=== PATIENT | male | born 1990 | race African-American/Black ===

== ENCOUNTER 2020-12-20 15:19 | Emergency (ER) | payer SELFPAY ==
--- OUTSIDE RECORDS SUMMARY | 2020-12-20 15:22 | XMS REPORT | Continuity of Care Document ---
:1990 Author Organization [facility] t Address [address] [place] [address] Care Team Providers Name Role Phone Pcp, Does Not Have Primary Care Physician Unavailable JAY Attending Clinician Unavailable Celeste Byrd R Attending Clinician Elif Pappas MD Attending Clinician Elif PAPPAS Attending Clinician Unavailable Payers Payer Name Policy Type Policy Effective Date Expiration Date Sour ce Number [facility] [id number] 2014 [place] [id number] 00:00:00 Health [id number] [place] [address] [facility] [id number] 2014 [place] PRISONERHARRIS 00:00:00 [facility] [id number] [phone] [place] [address] Problems Condition Condition Condition Status Onset Resolution Last Treating Co mments Source Name Details Category Date Date Treatment Clinician Date 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 [place] 2 Priority 1 Acute Acute Disease Active Overview: Barrera stress stress 09-17 [facility] reaction reaction 00:00: g of this 00 note might be different from the original. [place] 1 Priority 1 [place] V [place] V Disease Active Overview: Barrera diagnosis diagnosis 09-17 [facility] 00:00: g of this 00 note might be different from the original. GAF Score:41 Problem Problem Disease Active Overview: Malcolm is related to related to 09-10 [facility] social social 00:00: g of this environmen environmen 00 note t t might be different from the original. [place] 4 Priority 3 Legal Legal Disease Active Overview: [facility]rera problem problem - [facility] 00:00: g of this note might be different from the original. [place] 4 Priority 1 Problem Problem Disease Active Overview: Malcolm is related to related to 09-26 [facility] primary primary 00:00: g of this support support 00 note group group might be different from the original. [place] 4 Priority 2 Educationa Educationa Disease Active Overview : Barrera l problem l problem - [facility] 00:00: g of this 00 note might be different from the original. [place] 4 Priority 4 Left hand Left hand Disease Active Robbie ris pain pain Health Allergies, Adverse Reactions, Alerts Allergy Allergy Status Severity Reaction(s) Onset Inactive Treating Comm ents Source Name Type Date Date Clinician No Known DA Active [facility] 4 [facility] s 00:00: [address] No Known DA Active U [facility] 8 [place] s 00:00: [address] Family History Family Member Diagnosis Comments Start Date Stop Date Source Natural father Diabetes [facility] Natural father Heart [facility] Social History Social Habit Start Date Stop Date Quantity Comments Source [facility] Comment History of tobacco Cigarette Smoker [facility] use Alcohol intake 2020-11-19 2020-11-19 Current Barrera [facility] 00:00:00 00:00:00 non-drinker of alcohol (finding) History SDOH 2020-11-01 2020-11-01 1 [facility] Alcohol Frequency 00:00:00 00:00:00 History SDOH 2020-11-01 2020-11-01 1 [facility] Alcohol Std Drinks 00:00:00 00:00:00 History SDOH 2020-11-01 2020-11-01 1 [facility] Alcohol Binge 00:00:00 00:00:00 Cigarettes smoked 2020-10-30 2020-10-30 [facility] current (pack per 00:00:00 00:00:00 day) - Reported Cigarette 2020-10-30 2020-10-30 [facility] pack-years 00:00:00 00:00:00 Tobacco use and 2020-10-30 2020-10-30 Never used [facility] alth exposure 00:00:00 00:00:00 Sex [birth year] [facility] Unit alth 00:00:00 00:00:00 Smoking Status Start Date Stop Date Source Current every day smoker 2020-10-30 00:00:00 [facility] [employer] Medications Ordered Filled Start Stop Current Ordering Indication Dosage Frequency Signature Comments Components Source Medication Medication Date Date Medication? Clinician (SIG) Name Name Misc. Yes 800mg QD 800 mg [facility] 7-23 daily. Health (IBUPROFEN 18:24: 400MG TAB) 15 mirtazapine Yes Major 30mg Take 1 Orbbie ris (REMERON) 7-15 depressive tablet by [facility] 30 mg 00:00: disorder, mouth at tablet 00 recurrent bedtime severe nightly. without psychotic features prazosin Yes Post 2mg Take 1 [facility] (MINIPRESS) 7-15 traumatic capsule by [facility] 2 mg 00:00: stress mouth capsule 00 disorder every (PTSD) evening. tamsulosin 2020- No .4mg QD Take 0.4 Coffey rris (FLOMAX) 7-14 07-14 mg by [facility] 0.4 mg 12:34: 00:00 mouth extended 28 :00 daily. release capsule sertraline 2020- No Take by [facility] ris HCl (ZOLOFT 7-14 07-14 mouth. Healt h OR) 12:34: 00:00 28 :00 prazosin 2020- No Post 2mg Take 1 Barrera (MINIPRESS) 11-03 traumatic capsule by Health 2 mg 00:00: 00:00 stress mouth capsule 00 :00 disorder every (PTSD) evening. mirtazapine 2020- No Major 30mg Take 1 Coffey rris (REMERON) 11-03 depressive tablet by Health 30 mg 00:00: 00:00 disorder, mouth at tablet 00 :00 recurrent bedtime severe nightly. without psychotic features divalproex 2020- No Take 1 Malcolm is (DEPAKOTE) 09-17 tablet(s) Hea lth 500 mg 00:00: 00:00 by mouth delayed 00 :00 Every day release at bedtime tablet citalopram 2020- No Take 1 Malcolm is (CELEXA) 10 09-17 tablet(s) He alth mg tablet 00:00: 00:00 by mouth 00 :00 Every morning prazosin 2020- No Take Barrera (MINIPRESS) 09-17 capsule(s) H ealth 1 mg 00:00: 00:00 by mouth 1 capsule 00 :00 PO qHS x 5 days then 2 PO qHS Vital Signs Vital Name Observation Time Observation Value Comments Source Systolic blood pressure 2020-11-10 19:00:00 99 mm[Hg] [facility] Diastolic blood pressure 2020-11-10 19:00:00 70 mm[Hg] [facility] Heart rate 2020-11-10 19:00:00 95 /min [facility] Body temperature 2020-11-10 19:00:00 36.5 Deirdre [facility] Oxygen saturation in 2020-11-10 19:00:00 98 /min [facility] Arterial blood by Pulse oximetry Respiratory rate 2020-11-04 09:06:00 16 /min [facility] Body height 2020-10-31 10:41:00 182.9 cm [facility] Body weight 2020-10-31 10:41:00 74.844 kg [facility] BMI 2020-10-31 10:41:00 22.38 kg/m2 [facility] Procedures Procedure Date / Time Performed Performing Clinician [facility] 2020-10-31 11:30:00 [facility] SCREEN XRAY HAND 3 VIEWS MIN 2020-10-08 14:37:59 Rand Pappas [facility] XRAY WRIST 3 VIEWS MIN 2020-10-08 14:37:59 Rand Pappas [facility] XRAY FOREARM 2 VIEWS MIN 2020-10-08 14:37:59 Rand Pappas [facility] Plan of Care Planned Activity Planned Date Details Comments Source Future Scheduled Test 2021-01-21 IMM Influenza Seasonal [facility] 00:00:00 Jan to June (>/= 19 yrs) [code = IMM Influenza Seasonal Jan to June (>/= 19 yrs)] Future Scheduled Test 2002 COVID-19 Vaccine (1) [facility] 00:00:00 [code = COVID-19 Vaccine (1)] Future Scheduled Test 1996-01-25 Imm Pneumococcal 0-64 [facility] 00:00:00 (1 of 2 - PPSV23) [code = Imm Pneumococcal 0-64 (1 of 2 - PPSV23)] Encounters Start End Encounter Admission Attending Care Care Encounter Source Date/Time Date/Time Type Type Clinicians Facility Department ID 2019-08-13 Inpatient E [facility] [address] [facility] 19:56:00 2020-11-04 2020-11-12 Inpatient [facility] [id number] [place] 12:09:00 18:22:00 [facility] 2020-10-30 2020-11-04 Inpatient THOMPSON, [facility] [id number] [place] 18:46:39 10:15:00 [facility] 2020-11-02 2020-11-02 Outpatient [facility] [id number] [place] 00:00:00 00:00:00 Health 2020-10-18 2020-10-18 Outpatient [facility] [id number] [place] 00:00:00 00:00:00 Health 2020-10-18 2020-10-18 Outpatient [facility] [id number] [place] 00:00:00 00:00:00 Health 2020-10-08 2020-10-08 Emergency [facility] [id number] [place] 13:18:00 16:26:00 [facility] 2019-08-22 2019-08-22 Emergency [facility] [address] [facility] 18:07:00 18:07:00 Results Test Description Test Time Test Comments Results Result [facility] e Comments - XR FOREARM 2 2019-08-24 Patient Name: VIEWS LT 13:28:00 COURTNEY KINCAID Unit No: [id number] EXAMS: CPT CODE: [id number] XR [place] 2 [place] [id number] EXAM: - XR FOREARM 2 VIEWS LT INDICATION: injury LOCATION CODE: B2 COMPARISON: None available. TECHNIQUE: 2 views of the left forearm were obtained. FINDINGS: A DVR plate is present at the distal radius with multiple screws. There is no evidence of hardware failure. No acute fracture or malalignment is seen. There is soft tissue swelling at the volar aspect of the wrist with small faint radiopaque foreign bodies identified. IMPRESSION: Soft tissue swelling at the volar aspect of the wrist with small faint radiopaque foreign bodies identified. It is possible these radiopaque foreign bodies may represent postsurgical changes from the prior distal radius internal fixation. No acute fracture or malalignment. at 1328 Reported and signed by: Kennedi Bragg MD CC: Adelfo Casper; MARIEL KAMARA DO Technologist: Aftab Sandhu, (RT) (R) Transcrpt Date/Tm/Trnsp: 08/24/2019 (1328) [email or web address] Orig Print D/T: S: 08/24/2019 (7521) [facility] NAME: COURTNEY KINCAID [id number] PHYS: [place] [address] : 1990 AGE: 29 SEX: M LOC: [place] PHONE #: [phone] EXAM DATE: 08/24/2019 STATUS: REG ER FAX #: [phone] RADIOLOGY NO: PAGE 1 Signed Report URINALYSIS COMPLETE 2019-08-23 23:09:00 Test Item Value Reference Range Interpretation Comme nts UA COLOR (test code = COLU) YELLOW YELLOW UA APPEARANCE (test code = APPU) CLEAR CLEAR UA GLUCOSE DIPSTICK (test code = DGLUU) NORMAL MG/DL NORMAL UA BILIRUBIN DIPSTICK (test code = BILU) NEGATIVE MG/DL NEGATIVE UA KETONE DIPSTICK (test code = KETU) 5 MG/DL NEGATIVE UA SPECIFIC GRAVITY (test code = SGU) 1.030 1.003-1.030 N UA BLOOD DIPSTICK (test code = JOSE) 25 Jung/mm3 NEGATIVE A UA PH DIPSTICK (test code = JODEE) 5.0 5.0-9.0 N UA PROTEIN DIPSTICK (test code = PROU) NEGATIVE MG/DL NEGATIVE UA UROBILINIOGEN DIPSTICK (test code = URO) 1 MG/DL NORMAL A UA NITRITE DIPSTICK (test code = CIERRA) NEGATIVE NEGATIVE UA LEUKOCYTE ESTERASE DIPSTICK (test code = LEUU) TRACE /mm3 NEGA TIVE A UA CULTURE NEEDED? (test code = UACULT) NO, WBC<10 Criteria Culture Chk SOURCE OF URINE: CLEAN CATCHUA [id number] 23:09:00 Test Item Value Reference Range Interpretation Comments UA RBC (test code = RBCU) 0-3 RBC/HPF 0-3 UA WBC (test code = XWBCU) 0-3 WBC/HPF 0-5 UA EPITHELIAL CELLS (test code RARE EPI/HPF FEW = EPIU) UA BACTERIA (test code = FEW NONE XBACU) UA MUCUS (test code = MUCU) MODERATE #/LPF NONE A SOURCE OF URINE: CLEAN CATCHDRUGS OF ABUSE SCREEN [id number] 23:09:00 Test Item Value Reference Range Interpretation Comments UR COCAINE (test code = NEGATIVE NEGATIVE Cut off Value: 300 COCAU) ng/mL UR CANNABINOIDS (THC) POSITIVE NEGATIVE A This i s a Screening (test code = CANU) test and the Results are to be used for medical purpose s only.Cut off Va lue: 50 ng/mL UR AMPHETAMINE (test code NEGATIVE NEGATIVE Cu t off Value: 1000 = AMPHU) ng/mL UR BARBITURATE QUAL (test NEGATIVE NEGATIVE Cu t off Value: 200 code = BARBQLU) ng/mL UR BENZODIAZEPINE (test NEGATIVE NEGATIVE Cut off Value: 200 code = BENZU) ng/mL UR OPIATES QUAL (test NEGATIVE NEGATIVE Cut of f Value: 300 code = OPIAQLU) ng/mL UR PHENCYCLIDINE (PCP) NEGATIVE NEGATIVE Cut o ff Value: 25 (test code = PHENCU) ng/mL SOURCE OF URINE: CLEAN CATCHURINALYSIS [id number] 22:57:00 Test Item Value Reference Range Interpretation Comments UA COLOR (test code = YELLOW YELLOW COLU) UA APPEARANCE (test code CLEAR CLEAR = APPU) UA GLUCOSE DIPSTICK (test NORMAL MG/DL NORMAL code = DGLUU) UA BILIRUBIN DIPSTICK NEGATIVE MG/DL NEGATIVE (test code = BILU) UA KETONE DIPSTICK (test 5 MG/DL NEGATIVE code = KETU) UA SPECIFIC GRAVITY (test 1.030 1.003-1.030 N code = SGU) UA BLOOD DIPSTICK (test 25 Jung/mm3 NEGATIVE A code = JOSE) UA PH DIPSTICK (test code 5.0 5.0-9.0 N = JODEE) UA PROTEIN DIPSTICK (test NEGATIVE MG/DL NEGATIVE code = PROU) UA UROBILINIOGEN DIPSTICK 1 MG/DL NORMAL A (test code = URO) UA NITRITE DIPSTICK (test NEGATIVE NEGATIVE code = CIERRA) UA LEUKOCYTE ESTERASE TRACE /mm3 NEGATIVE A DIPSTICK (test code = LEUU) UA CULTURE NEEDED? (test NO, WBC<10 Criteria Culture Chk code = UACULT) SOURCE OF URINE: CLEAN CATCHUA [id number] 22:57:00 Test Item Value Reference Range Interpretation Comments UA RBC (test code = RBCU) 0-3 RBC/HPF 0-3 UA WBC (test code = XWBCU) 0-3 WBC/HPF 0-5 UA EPITHELIAL CELLS (test code RARE EPI/HPF FEW = EPIU) UA BACTERIA (test code = FEW NONE XBACU) UA MUCUS (test code = MUCU) MODERATE #/LPF NONE A SOURCE OF URINE: CLEAN CATCHDRUGS OF ABUSE SCREEN [id number] 22:57:00 Test Item Value Reference Range Interpretation Comments UR COCAINE (test code = NEGATIVE NEGATIVE Cut off Value: 300 COCAU) ng/mL UR CANNABINOIDS (THC) NEGATIVE (test code = CANU) UR AMPHETAMINE (test code NEGATIVE NEGATIVE Cu t off Value: 1000 = AMPHU) ng/mL UR BARBITURATE QUAL (test NEGATIVE code = BARBQLU) UR BENZODIAZEPINE (test NEGATIVE NEGATIVE Cut off Value: 200 code = BENZU) ng/mL UR OPIATES QUAL (test code NEGATIVE NEGATIVE C ut off Value: 300 = OPIAQLU) ng/mL UR PHENCYCLIDINE (PCP) NEGATIVE NEGATIVE Cut o ff Value: 25 (test code = PHENCU) ng/mL SOURCE OF URINE: CLEAN CATCHURINALYSIS [id number] 22:55:00 Test Item Value Reference Range Interpretation Comments UA COLOR (test code = COLU) YELLOW YELLOW UA APPEARANCE (test code = CLEAR CLEAR APPU) UA GLUCOSE DIPSTICK (test code NORMAL MG/DL NORMAL = DGLUU) UA BILIRUBIN DIPSTICK (test NEGATIVE MG/DL NEGATIVE code = BILU) UA KETONE DIPSTICK (test code 5 MG/DL NEGATIVE = KETU) UA SPECIFIC GRAVITY (test code 1.030 1.003-1.030 N = SGU) UA BLOOD DIPSTICK (test code = 25 Jung/mm3 NEGATIVE A JOSE) UA PH DIPSTICK (test code = 5.0 5.0-9.0 N JODEE) UA PROTEIN DIPSTICK (test code NEGATIVE MG/DL NEGATIVE = PROU) UA UROBILINIOGEN DIPSTICK 1 MG/DL NORMAL A (test code = URO) UA NITRITE DIPSTICK (test code NEGATIVE NEGATIVE = CIERRA) UA LEUKOCYTE ESTERASE DIPSTICK TRACE /mm3 NEGATIVE A (test code = LEUU) UA CULTURE NEEDED? (test code Criteria Culture Chk = UACULT) SOURCE OF URINE: CLEAN CATCHUA [id number] 22:55:00 Test Item Value Reference Range Interpretation Comments UA RBC (test code = RBCU) RBC/HPF 0-3 UA WBC (test code = XWBCU) WBC/HPF 0-5 UA EPITHELIAL CELLS (test code = EPI/HPF FEW EPIU) UA BACTERIA (test code = XBACU) NONE SOURCE OF URINE: CLEAN CATCHDRUGS OF ABUSE SCREEN [id number] 22:55:00 Test Item Value Reference Range Interpretation Comments UR COCAINE (test code = NEGATIVE NEGATIVE Cut off Value: 300 COCAU) ng/mL UR CANNABINOIDS (THC) NEGATIVE (test code = CANU) UR AMPHETAMINE (test code NEGATIVE NEGATIVE Cu t off Value: 1000 = AMPHU) ng/mL UR BARBITURATE QUAL (test NEGATIVE code = BARBQLU) UR BENZODIAZEPINE (test NEGATIVE NEGATIVE Cut off Value: 200 code = BENZU) ng/mL UR OPIATES QUAL (test code NEGATIVE NEGATIVE C ut off Value: 300 = OPIAQLU) ng/mL UR PHENCYCLIDINE (PCP) NEGATIVE NEGATIVE Cut o ff Value: 25 (test code = PHENCU) ng/mL SOURCE OF URINE: CLEAN CATCHURINALYSIS [id number] 22:54:00 Test Item Value Reference Range Interpretation Comments UA COLOR (test code = COLU) YELLOW YELLOW UA APPEARANCE (test code = CLEAR CLEAR APPU) UA GLUCOSE DIPSTICK (test code NORMAL MG/DL NORMAL = DGLUU) UA BILIRUBIN DIPSTICK (test NEGATIVE MG/DL NEGATIVE code = BILU) UA KETONE DIPSTICK (test code 5 MG/DL NEGATIVE = KETU) UA SPECIFIC GRAVITY (test code 1.030 1.003-1.030 N = SGU) UA BLOOD DIPSTICK (test code = 25 Jung/mm3 NEGATIVE A JOSE) UA PH DIPSTICK (test code = 5.0 5.0-9.0 N JODEE) UA PROTEIN DIPSTICK (test code NEGATIVE MG/DL NEGATIVE = PROU) UA UROBILINIOGEN DIPSTICK 1 MG/DL NORMAL A (test code = URO) UA NITRITE DIPSTICK (test code NEGATIVE NEGATIVE = CIERRA) UA LEUKOCYTE ESTERASE DIPSTICK TRACE /mm3 NEGATIVE A (test code = LEUU) UA CULTURE NEEDED? (test code Criteria Culture Chk = UACULT) SOURCE OF URINE: CLEAN CATCHUA [id number] 22:54:00 Test Item Value Reference Range Interpretation Comments UA RBC (test code = RBCU) RBC/HPF 0-3 UA WBC (test code = XWBCU) WBC/HPF 0-5 UA EPITHELIAL CELLS (test code = EPI/HPF FEW EPIU) UA BACTERIA (test code = XBACU) NONE SOURCE OF URINE: CLEAN CATCHDRUGS OF ABUSE SCREEN [id number] 22:54:00 Test Item Value Reference Range Interpretation Comments UR COCAINE (test code = NEGATIVE NEGATIVE Cut off Value: 300 COCAU) ng/mL UR CANNABINOIDS (THC) NEGATIVE (test code = CANU) UR AMPHETAMINE (test code NEGATIVE NEGATIVE Cu t off Value: 1000 = AMPHU) ng/mL UR BARBITURATE QUAL (test NEGATIVE code = BARBQLU) UR BENZODIAZEPINE (test NEGATIVE NEGATIVE Cut off Value: 200 code = BENZU) ng/mL UR OPIATES QUAL (test code NEGATIVE NEGATIVE C ut off Value: 300 = OPIAQLU) ng/mL UR PHENCYCLIDINE (PCP) NEGATIVE (test code = PHENCU) SOURCE OF URINE: CLEAN CATCHURINALYSIS [id number] 22:53:00 Test Item Value Reference Range Interpretation Comments UA COLOR (test code = COLU) YELLOW YELLOW UA APPEARANCE (test code = CLEAR CLEAR APPU) UA GLUCOSE DIPSTICK (test code NORMAL MG/DL NORMAL = DGLUU) UA BILIRUBIN DIPSTICK (test NEGATIVE MG/DL NEGATIVE code = BILU) UA KETONE DIPSTICK (test code 5 MG/DL NEGATIVE = KETU) UA SPECIFIC GRAVITY (test code 1.030 1.003-1.030 N = SGU) UA BLOOD DIPSTICK (test code = 25 Jung/mm3 NEGATIVE A JOSE) UA PH DIPSTICK (test code = 5.0 5.0-9.0 N JODEE) UA PROTEIN DIPSTICK (test code NEGATIVE MG/DL NEGATIVE = PROU) UA UROBILINIOGEN DIPSTICK 1 MG/DL NORMAL A (test code = URO) UA NITRITE DIPSTICK (test code NEGATIVE NEGATIVE = CIERRA) UA LEUKOCYTE ESTERASE DIPSTICK TRACE /mm3 NEGATIVE A (test code = LEUU) UA CULTURE NEEDED? (test code Criteria Culture Chk = UACULT) SOURCE OF URINE: CLEAN CATCHUA [id number] 22:53:00 Test Item Value Reference Range Interpretation Comments UA RBC (test code = RBCU) RBC/HPF 0-3 UA WBC (test code = XWBCU) WBC/HPF 0-5 UA EPITHELIAL CELLS (test code = EPI/HPF FEW EPIU) UA BACTERIA (test code = XBACU) NONE SOURCE OF URINE: CLEAN CATCHDRUGS OF ABUSE SCREEN [id number] 22:53:00 Test Item Value Reference Range Interpretation Comments UR COCAINE (test code = NEGATIVE NEGATIVE Cut off Value: 300 COCAU) ng/mL UR CANNABINOIDS (THC) NEGATIVE (test code = CANU) UR AMPHETAMINE (test code NEGATIVE NEGATIVE Cu t off Value: 1000 = AMPHU) ng/mL UR BARBITURATE QUAL (test NEGATIVE code = BARBQLU) UR BENZODIAZEPINE (test NEGATIVE NEGATIVE Cut off Value: 200 code = BENZU) ng/mL UR OPIATES QUAL (test code NEGATIVE = OPIAQLU) UR PHENCYCLIDINE (PCP) NEGATIVE (test code = PHENCU) SOURCE OF URINE: CLEAN CATCHURINALYSIS [id number] 22:52:00 Test Item Value Reference Range Interpretation Comments UA COLOR (test code = COLU) YELLOW YELLOW UA APPEARANCE (test code = CLEAR CLEAR APPU) UA GLUCOSE DIPSTICK (test code NORMAL MG/DL NORMAL = DGLUU) UA BILIRUBIN DIPSTICK (test NEGATIVE MG/DL NEGATIVE code = BILU) UA KETONE DIPSTICK (test code 5 MG/DL NEGATIVE = KETU) UA SPECIFIC GRAVITY (test code 1.030 1.003-1.030 N = SGU) UA BLOOD DIPSTICK (test code = 25 Jung/mm3 NEGATIVE A JOSE) UA PH DIPSTICK (test code = 5.0 5.0-9.0 N JODEE) UA PROTEIN DIPSTICK (test code NEGATIVE MG/DL NEGATIVE = PROU) UA UROBILINIOGEN DIPSTICK 1 MG/DL NORMAL A (test code = URO) UA NITRITE DIPSTICK (test code NEGATIVE NEGATIVE = CIERRA) UA LEUKOCYTE ESTERASE DIPSTICK TRACE /mm3 NEGATIVE A (test code = LEUU) UA CULTURE NEEDED? (test code Criteria Culture Chk = UACULT) SOURCE OF URINE: CLEAN CATCHUA [id number] 22:52:00 Test Item Value Reference Range Interpretation Comments UA RBC (test code = RBCU) RBC/HPF 0-3 UA WBC (test code = XWBCU) WBC/HPF 0-5 UA EPITHELIAL CELLS (test code = EPI/HPF FEW EPIU) UA BACTERIA (test code = XBACU) NONE SOURCE OF URINE: CLEAN CATCHDRUGS OF ABUSE SCREEN [id number] 22:52:00 Test Item Value Reference Range Interpretation Comments UR COCAINE (test code = NEGATIVE COCAU) UR CANNABINOIDS (THC) NEGATIVE (test code = CANU) UR AMPHETAMINE (test code NEGATIVE NEGATIVE Cu t off Value: 1000 = AMPHU) ng/mL UR BARBITURATE QUAL (test NEGATIVE code = BARBQLU) UR BENZODIAZEPINE (test NEGATIVE NEGATIVE Cut off Value: 200 code = BENZU) ng/mL UR OPIATES QUAL (test code NEGATIVE = OPIAQLU) UR PHENCYCLIDINE (PCP) NEGATIVE (test code = PHENCU) SOURCE OF URINE: CLEAN CATCHBASIC METABOLIC [id number] 22:52:00 Test Item Value Reference Range Interpretation Comments SODIUM (test code = 136 MMOL/L 137-145 L NA) POTASSIUM (test code = 3.8 MMOL/L 3.5-5.1 N K) CHLORIDE (test code = 101 MMOL/L 98-107 N CL) CARBON DIOXIDE (test 27 MMOL/L 22-30 N code = CO2) GLUCOSE (test code = 120 MG/DL 74-106 H GLU) BLOOD UREA NITROGEN 18 MG/DL 9-20 N (test code = BUN) GLOMERULAR FILTRATION > 60 Report ing units: RATE (test code = GFR) ml/mi n/1.73 m2 (Modified MDRD Formula)Referen ce Range: > or = 6 0 ml/min/1.73 m2 CREATININE (test code 1.00 MG/DL 0.66-1.25 N = CREAT) CALCIUM (test code = 9.3 MG/DL 8.4-10.2 N CA) HEPATIC FUNCTION [id number] 22:52:00 Test Item Value Reference Range Interpretation Comments TOTAL PROTEIN (test code = PROT) 7.2 G/DL 6.2-7.6 N ALBUMIN (test code = ALB) 4.3 G/DL 3.5-5.0 N BILIRUBIN TOTAL (test code = BILT) 0.8 MG/DL 0.2-1.3 N BILIRUBIN DIRECT (test code = 0.0 MG/DL 0.0-0.3 N BILD) SGOT/AST (test code = AST) 33 UNITS/L 17-59 N SGPT/ALT (test code = ALT) 22 UNITS/L <50 ALKALINE PHOSPHATASE (test code = 49 UNITS/L 38-126 N ALKP) [id number] 22:52:00 Test Item Value Reference Range Interpretation Comments ALCOHOL (test code = ALC) < 10.0 MG/DL <10 BASIC METABOLIC [id number] 22:51:00 Test Item Value Reference Range Interpretation Comments SODIUM (test code = 136 MMOL/L 137-145 L NA) POTASSIUM (test code = 3.8 MMOL/L 3.5-5.1 N K) CHLORIDE (test code = 101 MMOL/L 98-107 N CL) CARBON DIOXIDE (test MMOL/L 22-30 code = CO2) GLUCOSE (test code = MG/DL 74-106 GLU) BLOOD UREA NITROGEN MG/DL 9-20 (test code = BUN) GLOMERULAR FILTRATION > 60 Report ing units: RATE (test code = GFR) ml/mi n/1.73 m2 (Modified MDRD Formula)Referen ce Range: > or = 6 0 ml/min/1.73 m2 CREATININE (test code 1.00 MG/DL 0.66-1.25 N = CREAT) CALCIUM (test code = MG/DL 8.7-9.7 CA) HEPATIC FUNCTION [id number] 22:51:00 Test Item Value Reference Range Interpretation Comments TOTAL PROTEIN (test code = PROT) G/DL 6.2-7.6 ALBUMIN (test code = ALB) 4.3 G/DL 3.5-5.0 N BILIRUBIN TOTAL (test code = BILT) MG/DL 0.2-1.3 BILIRUBIN DIRECT (test code = BILD) 0.0 MG/DL 0.0-0.3 N SGOT/AST (test code = AST) UNITS/L 15-37 SGPT/ALT (test code = ALT) UNITS/L <50 ALKALINE PHOSPHATASE (test code = UNITS/L 38-126 ALKP) [id number] 22:51:00 Test Item Value Reference Range Interpretation Comments ALCOHOL (test code = ALC) MG/DL <10 BASIC METABOLIC [id number] 22:51:00 Test Item Value Reference Range Interpretation Comments SODIUM (test code = 136 MMOL/L 137-145 L NA) POTASSIUM (test code = 3.8 MMOL/L 3.5-5.1 N K) CHLORIDE (test code = 101 MMOL/L 98-107 N CL) CARBON DIOXIDE (test 27 MMOL/L 22-30 N code = CO2) GLUCOSE (test code = MG/DL 74-106 GLU) BLOOD UREA NITROGEN MG/DL 9-20 (test code = BUN) GLOMERULAR FILTRATION > 60 Report ing units: RATE (test code = GFR) ml/mi n/1.73 m2 (Modified MDRD Formula)Referen ce Range: > or = 6 0 ml/min/1.73 m2 CREATININE (test code 1.00 MG/DL 0.66-1.25 N = CREAT) CALCIUM (test code = MG/DL 8.7-9.7 CA) HEPATIC FUNCTION [id number] 22:51:00 Test Item Value Reference Range Interpretation Comments TOTAL PROTEIN (test code = PROT) 7.2 G/DL 6.2-7.6 N ALBUMIN (test code = ALB) 4.3 G/DL 3.5-5.0 N BILIRUBIN TOTAL (test code = BILT) 0.8 MG/DL 0.2-1.3 N BILIRUBIN DIRECT (test code = 0.0 MG/DL 0.0-0.3 N BILD) SGOT/AST (test code = AST) 33 UNITS/L 17-59 N SGPT/ALT (test code = ALT) UNITS/L <50 ALKALINE PHOSPHATASE (test code = UNITS/L 38-126 ALKP) [id number] 22:51:00 Test Item Value Reference Range Interpretation Comments ALCOHOL (test code = ALC) MG/DL <10 BASIC METABOLIC [id number] 22:50:00 Test Item Value Reference Range Interpretation Comments SODIUM (test code = 136 MMOL/L 137-145 L NA) POTASSIUM (test code = 3.8 MMOL/L 3.5-5.1 N K) CHLORIDE (test code = 101 MMOL/L 98-107 N CL) CARBON DIOXIDE (test MMOL/L 22-30 code = CO2) GLUCOSE (test code = MG/DL 74-106 GLU) BLOOD UREA NITROGEN MG/DL 9-20 (test code = BUN) GLOMERULAR FILTRATION > 60 Report ing units: RATE (test code = GFR) ml/mi n/1.73 m2 (Modified MDRD Formula)Referen ce Range: > or = 6 0 ml/min/1.73 m2 CREATININE (test code 1.00 MG/DL 0.66-1.25 N = CREAT) CALCIUM (test code = MG/DL 8.7-9.7 CA) HEPATIC FUNCTION [id number] 22:50:00 Test Item Value Reference Range Interpretation Comments TOTAL PROTEIN (test code = PROT) G/DL 6.2-7.6 ALBUMIN (test code = ALB) 4.3 G/DL 3.5-5.0 N BILIRUBIN TOTAL (test code = BILT) MG/DL 0.2-1.3 BILIRUBIN DIRECT (test code = BILD) MG/DL 0.0-0.3 SGOT/AST (test code = AST) UNITS/L 15-37 SGPT/ALT (test code = ALT) UNITS/L <50 ALKALINE PHOSPHATASE (test code = UNITS/L 38-126 ALKP) [id number] 22:50:00 Test Item Value Reference Range Interpretation Comments ALCOHOL (test code = ALC) MG/DL <10 URINALYSIS [id number] 22:50:00 Test Item Value Reference Range Interpretation Comments UA COLOR (test code = COLU) YELLOW YELLOW UA APPEARANCE (test code = CLEAR CLEAR APPU) UA GLUCOSE DIPSTICK (test code NORMAL MG/DL NORMAL = DGLUU) UA BILIRUBIN DIPSTICK (test NEGATIVE MG/DL NEGATIVE code = BILU) UA KETONE DIPSTICK (test code 5 MG/DL NEGATIVE = KETU) UA SPECIFIC GRAVITY (test code 1.030 1.003-1.030 N = SGU) UA BLOOD DIPSTICK (test code = 25 Jung/mm3 NEGATIVE A JOSE) UA PH DIPSTICK (test code = 5.0 5.0-9.0 N JODEE) UA PROTEIN DIPSTICK (test code NEGATIVE MG/DL NEGATIVE = PROU) UA UROBILINIOGEN DIPSTICK 1 MG/DL NORMAL A (test code = URO) UA NITRITE DIPSTICK (test code NEGATIVE NEGATIVE = CIERRA) UA LEUKOCYTE ESTERASE DIPSTICK TRACE /mm3 NEGATIVE A (test code = LEUU) UA CULTURE NEEDED? (test code Criteria Culture Chk = UACULT) SOURCE OF URINE: CLEAN CATCHUA [id number] 22:50:00 Test Item Value Reference Range Interpretation Comments UA RBC (test code = RBCU) RBC/HPF 0-3 UA WBC (test code = XWBCU) WBC/HPF 0-5 UA EPITHELIAL CELLS (test code = EPI/HPF FEW EPIU) UA BACTERIA (test code = XBACU) NONE SOURCE OF URINE: CLEAN CATCHDRUGS OF ABUSE SCREEN [id number] 22:50:00 Test Item Value Reference Range Interpretation Comments UR COCAINE (test code = NEGATIVE COCAU) UR CANNABINOIDS (THC) NEGATIVE (test code = CANU) UR AMPHETAMINE (test code NEGATIVE = AMPHU) UR BARBITURATE QUAL (test NEGATIVE code = BARBQLU) UR BENZODIAZEPINE (test NEGATIVE NEGATIVE Cut off Value: 200 code = BENZU) ng/mL UR OPIATES QUAL (test code NEGATIVE = OPIAQLU) UR PHENCYCLIDINE (PCP) NEGATIVE (test code = PHENCU) SOURCE OF URINE: CLEAN CATCHBASIC METABOLIC [id number] 22:49:00 Test Item Value Reference Range Interpretation Comments SODIUM (test code = NA) 136 MMOL/L 137-145 L POTASSIUM (test code = K) 3.8 MMOL/L 3.5-5.1 N CHLORIDE (test code = CL) 101 MMOL/L 98-107 N CARBON DIOXIDE (test code = CO2) MMOL/L 22-30 GLUCOSE (test code = GLU) MG/DL 74-106 BLOOD UREA NITROGEN (test code = MG/DL 9-20 BUN) GLOMERULAR FILTRATION RATE (test code = GFR) CREATININE (test code = CREAT) MG/DL 0.66-1.25 CALCIUM (test code = CA) MG/DL 8.7-9.7 HEPATIC FUNCTION [id number] 22:49:00 Test Item Value Reference Range Interpretation Comments TOTAL PROTEIN (test code = PROT) G/DL 6.2-7.6 ALBUMIN (test code = ALB) 4.3 G/DL 3.5-5.0 N BILIRUBIN TOTAL (test code = BILT) MG/DL 0.2-1.3 BILIRUBIN DIRECT (test code = BILD) MG/DL 0.0-0.3 SGOT/AST (test code = AST) UNITS/L 15-37 SGPT/ALT (test code = ALT) UNITS/L <50 ALKALINE PHOSPHATASE (test code = UNITS/L 38-126 ALKP) [id number] 22:49:00 Test Item Value Reference Range Interpretation Comments ALCOHOL (test code = ALC) MG/DL <10 BASIC METABOLIC [id number] 22:48:00 Test Item Value Reference Range Interpretation Comments SODIUM (test code = NA) MMOL/L 137-145 POTASSIUM (test code = K) MMOL/L 3.5-5.1 CHLORIDE (test code = CL) MMOL/L 98-107 CARBON DIOXIDE (test code = CO2) MMOL/L 22-30 GLUCOSE (test code = GLU) MG/DL 74-106 BLOOD UREA NITROGEN (test code = BUN) MG/DL 9-20 GLOMERULAR FILTRATION RATE (test code = GFR) CREATININE (test code = CREAT) MG/DL 0.66-1.25 CALCIUM (test code = CA) MG/DL 8.7-9.7 HEPATIC FUNCTION [id number] 22:48:00 Test Item Value Reference Range Interpretation Comments TOTAL PROTEIN (test code = PROT) G/DL 6.2-7.6 ALBUMIN (test code = ALB) 4.3 G/DL 3.5-5.0 N BILIRUBIN TOTAL (test code = BILT) MG/DL 0.2-1.3 BILIRUBIN DIRECT (test code = BILD) MG/DL 0.0-0.3 SGOT/AST (test code = AST) UNITS/L 15-37 SGPT/ALT (test code = ALT) UNITS/L <50 ALKALINE PHOSPHATASE (test code = UNITS/L 38-126 ALKP) [id number] 22:48:00 Test Item Value Reference Range Interpretation Comments ALCOHOL (test code = ALC) MG/DL <10 CBC W/AUTO [id number] 22:39:00 Test Item Value Reference Range Interpretation Comments WHITE BLOOD CELL (test code = 10.6 K/MM3 3.8-9.8 H WBC) RED BLOOD CELL (test code = 3.36 M/MM3 3.95-5.67 L RBC) HEMOGLOBIN (test code = HGB) 11.3 G/DL 12.4-16.7 L HEMATOCRIT (test code = HCT) 33.9 % 35.9-49.5 L MEAN CELL VOLUME (test code = 101 fL 81.7-96.1 H MCV) MEAN CELL HGB (test code = MCH) 33.6 pg 27.6-33.2 H MEAN CELL HGB CONCETRATION 33.3 % 32.9-35.5 N (test code = MCHC) RED CELL DISTRIBUTION WIDTH 12.0 % 12.1-15.2 L (test code = RDW) PLATELET COUNT (test code = 359 K/MM3 129-368 N PLT) MEAN PLATELET VOLUME (test code 9.0 fl 7.4-10.4 N = MPV) NEUTROPHIL % (test code = NT%) 67.0 % 43-75 N IMMATURE GRANULOCYTE % (test 0.3 % 0.0-2.0 N code = IG%) LYMPHOCYTE % (test code = LY%) 22.4 % 14-44 N MONOCYTE % (test code = MO%) 9.1 % 4-13 N EOSINOPHIL % (test code = EO%) 0.7 % 0-6 N BASOPHIL % (test code = BA%) 0.5 % 0-2 N NUCLEATED RBC % (test code = 0.0 % 0-1.0 N NRBC%) NEUTROPHIL # (test code = NT#) 7.11 K/mm3 2.0-7.6 N IMMATURE GRANULOCYTE # (test 0.03 x10 3/uL 0-0.03 N code = IG#) LYMPHOCYTE # (test code = LY#) 2.37 K/mm3 1.0-3.8 N MONOCYTE # (test code = MO#) 0.96 K/mm3 0.1-0.8 H EOSINOPHIL # (test code = EO#) 0.07 K/mm3 0.0-0.2 N BASOPHIL # (test code = BA#) 0.05 K/mm3 0.0-0.2 N NUCLEATED RBC # (test code = 0.00 K/mm3 0.0-0.1 N NRBC#) URINALYSIS [id number] 22:38:00 Test Item Value Reference Range Interpretation Comments UA COLOR (test code = COLU) YELLOW YELLOW UA APPEARANCE (test code = CLEAR CLEAR APPU) UA GLUCOSE DIPSTICK (test code NORMAL MG/DL NORMAL = DGLUU) UA BILIRUBIN DIPSTICK (test NEGATIVE MG/DL NEGATIVE code = BILU) UA KETONE DIPSTICK (test code 5 MG/DL NEGATIVE = KETU) UA SPECIFIC GRAVITY (test code 1.030 1.003-1.030 N = SGU) UA BLOOD DIPSTICK (test code = 25 Jung/mm3 NEGATIVE A JOSE) UA PH DIPSTICK (test code = 5.0 5.0-9.0 N JODEE) UA PROTEIN DIPSTICK (test code NEGATIVE MG/DL NEGATIVE = PROU) UA UROBILINIOGEN DIPSTICK 1 MG/DL NORMAL A (test code = URO) UA NITRITE DIPSTICK (test code NEGATIVE NEGATIVE = CIERRA) UA LEUKOCYTE ESTERASE DIPSTICK TRACE /mm3 NEGATIVE A (test code = LEUU) UA CULTURE NEEDED? (test code Criteria Culture Chk = UACULT) SOURCE OF URINE: CLEAN CATCHUA [id number] 22:38:00 Test Item Value Reference Range Interpretation Comments UA RBC (test code = RBCU) RBC/HPF 0-3 UA WBC (test code = XWBCU) WBC/HPF 0-5 UA EPITHELIAL CELLS (test code = EPI/HPF FEW EPIU) UA BACTERIA (test code = XBACU) NONE SOURCE OF URINE: CLEAN CATCHDRUGS OF ABUSE SCREEN [id number] 22:38:00 Test Item Value Reference Range Interpretation Comments UR COCAINE (test code = COCAU) NEGATIVE UR CANNABINOIDS (THC) (test code = NEGATIVE CANU) UR AMPHETAMINE (test code = AMPHU) NEGATIVE UR BARBITURATE QUAL (test code = NEGATIVE BARBQLU) UR BENZODIAZEPINE (test code = BENZU) NEGATIVE UR OPIATES QUAL (test code = OPIAQLU) NEGATIVE UR PHENCYCLIDINE (PCP) (test code = NEGATIVE PHENCU) SOURCE OF URINE: CLEAN CATCHURINALYSIS [id number] 22:38:00 Test Item Value Reference Range Interpretation Comments UA COLOR (test code = COLU) YELLOW YELLOW UA APPEARANCE (test code = CLEAR CLEAR APPU) UA GLUCOSE DIPSTICK (test code NORMAL MG/DL NORMAL = DGLUU) UA BILIRUBIN DIPSTICK (test NEGATIVE MG/DL NEGATIVE code = BILU) UA KETONE DIPSTICK (test code 5 MG/DL NEGATIVE = KETU) UA SPECIFIC GRAVITY (test code 1.030 1.003-1.030 N = SGU) UA BLOOD DIPSTICK (test code = 25 Jung/mm3 NEGATIVE A JOSE) UA PH DIPSTICK (test code = 5.0 5.0-9.0 N JODEE) UA PROTEIN DIPSTICK (test code NEGATIVE MG/DL NEGATIVE = PROU) UA UROBILINIOGEN DIPSTICK 1 MG/DL NORMAL A (test code = URO) UA NITRITE DIPSTICK (test code NEGATIVE NEGATIVE = CIERRA) UA LEUKOCYTE ESTERASE DIPSTICK TRACE /mm3 NEGATIVE A (test code = LEUU) UA CULTURE NEEDED? (test code Criteria Culture Chk = UACULT) SOURCE OF URINE: CLEAN CATCHUA [id number] 22:38:00 Test Item Value Reference Range Interpretation Comments UA RBC (test code = RBCU) RBC/HPF 0-3 UA WBC (test code = XWBCU) WBC/HPF 0-5 UA EPITHELIAL CELLS (test code = EPI/HPF FEW EPIU) UA BACTERIA (test code = XBACU) NONE SOURCE OF URINE: CLEAN CATCHDRUGS OF ABUSE SCREEN [id number] 22:38:00 Test Item Value Reference Range Interpretation Comments UR COCAINE (test code = COCAU) NEGATIVE UR CANNABINOIDS (THC) (test code = NEGATIVE CANU) UR AMPHETAMINE (test code = AMPHU) NEGATIVE UR BARBITURATE QUAL (test code = NEGATIVE BARBQLU) UR BENZODIAZEPINE (test code = BENZU) NEGATIVE UR OPIATES QUAL (test code = OPIAQLU) NEGATIVE UR PHENCYCLIDINE (PCP) (test code = NEGATIVE PHENCU) SOURCE OF URINE: CLEAN CATCHUA RFLX MICR CULT IF [id number] 19:20:00 Test Item Value Reference Range Interpretation Comments UA COLOR (test code = COLU) YELLOW discript YEL/STRAW UA APPEARANCE (test code = CLEAR discript CLEAR APPU) UA GLUCOSE DIPSTICK (test NEGATIVE mg/dL NEG code = DGLUU) UA BILIRUBIN DIPSTICK (test NEGATIVE mg/dL NEG code = BILU) UA KETONE DIPSTICK (test NEGATIVE mg/dL NEG code = KETU) UA SPECIFIC GRAVITY (test 1.025 SG 1.005-1.030 code = SGU) UA BLOOD DIPSTICK (test NEGATIVE mg/DL NEG code = JOSE) UA PH DIPSTICK (test code = 6.0 pH UNITS 5.0-7.0 JODEE) UA PROTEIN DIPSTICK (test NEGATIVE mg/dL NEG code = PROU) UA UROBILINIOGEN DIPSTICK 0.2 mg/dL <2.0 (test code = URO) UA NITRITE DIPSTICK (test NEGATIVE SCREEN NEG code = CIERRA) UA LEUKOCYTE ESTERASE NEGATIVE Leuk/mcL NEGATIVE DIPSTICK (test code = LEUU) SOURCE OF URINE: CLEAN CATCHIndication for culture: Delirium-if no other src UA RFLX MICR CULT IF [id number] 19:19:00 Test Item Value Reference Range Interpretation Comments UA COLOR (test code = COLU) YELLOW discript YEL/STRAW UA APPEARANCE (test code = CLEAR discript CLEAR APPU) UA GLUCOSE DIPSTICK (test NEGATIVE mg/dL NEG code = DGLUU) UA BILIRUBIN DIPSTICK (test NEGATIVE mg/dL NEG code = BILU) UA KETONE DIPSTICK (test NEGATIVE mg/dL NEG code = KETU) UA SPECIFIC GRAVITY (test 1.025 SG 1.005-1.030 code = SGU) UA BLOOD DIPSTICK (test NEGATIVE mg/DL NEG code = JOSE) UA PH DIPSTICK (test code = 6.0 pH UNITS 5.0-7.0 JODEE) UA PROTEIN DIPSTICK (test NEGATIVE mg/dL NEG code = PROU) UA UROBILINIOGEN DIPSTICK 0.2 mg/dL <2.0 (test code = URO) UA NITRITE DIPSTICK (test NEGATIVE SCREEN NEG code = CIERRA) UA LEUKOCYTE ESTERASE NEGATIVE Leuk/mcL NEGATIVE DIPSTICK (test code = LEUU) UA CULTURE NEEDED? (test Criteria Culture CHK code = UACULT) SOURCE OF URINE: CLEAN CATCHIndication for culture: Delirium-if no other src PROTHROMBIN [id number] 18:46:00 Test Item Value Reference Range Interpretation Comments PT PATIENT (test code = PTP) 11.8 SECONDS 9.3-12.9 N INTERNATIONAL NORMAL RATIO 1.04 INR Unit 0.8-1.2 N (test code = INR) THROMBOPLASTIN TIME [id number] 18:46:00 Test Item Value Reference Range Interpretation Comments THROMBOPLASTIN TIME PARTIAL 28.7 SECONDS 26-35 N (test code = PTT) - XR CHEST 1 [id number] 18:45:00 Name: COURTNEY KINCAID [place] : 1990 Age/S: 29 / M [id number] Unit #: [id number] Loc: [place] [address] Phys: Luis Yao MD Acct: [id number] Dis Date: Status: REG ER PHONE #: [phone] Exam Date: 08/19/2019 4875 FAX #: Reason: Code Stroke EXAMS: CPT: [id number] XR CHEST 1 V 23679 Fluoro Time: DAP (Gy m2): Air Kerma (mGy): Chest Radiograph History: Code Stroke Comparison: None at this time Location: R16 A singlefrontal view of the chest is submitted. The heart is within normal limits in size. Pulmonary vasculature is unremarkable. The visualized lung lamb appear to be free of disease. The bones appear unremarkable. IMPRESSION: There is no radiographic evidence of acute cardiopulmonary disease. at 1845 Reported and signed by: Eitan Baxter M.D. CC: Luis Yao MD PAGE 1 Signed Report Name: COURTNEY KINCAID [place] : 1990 Age/S: 29 / M [id number] Unit #: [id number] Loc: [place] [address] Phys: Luis Yao MD Acct: [id number] Dis Date: Status: REG ER PHONE #: [phone] Exam Date: 08/19/2019 182 FAX #: Reason: Code Stroke EXAMS: CPT: [id number] XR CHEST 1 V 59843 Fluoro Time: DAP (Gy m2): Air Kerma (mGy): <Continued> Technologist: Ivonne Kimble RT(R)(CT) Trnscb Date/Time: 08/19/2019 (1844) [email or web address] Orig Print D/T: S: 08/19/2019 (1847) PAGE 2 SignedReport- CT HEAD/BRAIN W/O [id number] 18:37:00 Name: COURTNEY KINCAID [facility] : 1990 Age/S: 29 / M [address] Unit #: [id number] Loc: [place] [address] Phys: Luis Yao MD Acct: [id number] Dis Date: Status: REG ER PHONE #: [phone] Exam Date: 08/19/2019 1820 FAX #: Reason: Code Stroke Report Has Been Amended EX AMS: CPT: [id number] CT HEAD/BRAIN W/O CONT 47711 Addendum - 08/19/2019 SIGNED 08/19/[address]: [id number]/CTHDBRWO Findings were reported to Dr. Yao in the emergency room at 6:33 PM on 08/19/2019 at 1837 Reported and signed by: Waqas Faustin M.D. Transcribed: 08/19/2019 (1836) [id number] Site ID: [id number] CT head TECHNIQUE: CT examination of the brain was performed without contrast on a helical scanner.Scanning conducted from skull base to vertex in the axial plane acquiring 5mm slice thickness. Coronal and sagittal two-dimensional reformatted imaging performed. CT dose lowering te chnique utilized, with adjustment of MA/kV according to patient size and automated exposure control. CLINICAL HISTORY: Recent head injury, possible seizure FINDINGS: No mass-effect, midline shift, extra-axial fluid collections or intracranial hemorrhage is seen. Cerebral and cerebellar hemispheres are well-formed. There is no evidence for acute cerebral edema. Focal left parietal scalp hematoma is noted. No calvarial fracture demonstrated. Mastoid air cells and paranasal sinuses are clear. IMPRESSION: Focal left parietal scalp hematoma, otherwise negative noncontrast head CT PAGE 1 Signed Report (CONTINUED) Name: COURTNEY KINCAID [facility] : 1990 Age/S: 29 / M [address] Unit #: [id number] Loc: [place] [address] Phys: Luis Yao MD Acct: [id number] Dis Date: Status: REG ER PHONE #: [phone] Exam Date: 08/19/20191819 FAX #: Reason: Code Stroke Report Has Been Amended EXAMS: CPT: [id number] CT HEAD/BRAIN W/O CONT 19480 <Continued> at 1829 Reported and signed by: Waqas Faustin M.D. CC: Luis Yao MD Technologist:Radha Carmona, RT(R); Clarissa CTDI: DLP: Trnscb Date/Time: 08/19/2019(1828) [email or web address] Orig Print D/T: S: 08/19/2019 (183) PAGE 2 Signed ReportBASIC METABOLIC [id number] 18:31:00 Test Item Value Reference Range Interpretation Comments SODIUM (test code = NA) 139 mmol/L 134-147 N POTASSIUM (test code = 3.8 mmol/L 3.4-5.0 N K) CHLORIDE (test code = 106 mmol/L 100-108 N CL) CARBON DIOXIDE (test 27 mmol/L 21-32 N code = CO2) ANION GAP (test code = 6.0 GAP calc 4.0-15.0 N GAP) GLUCOSE (test code = 84 MG/DL 70-110 N GLU) BLOOD UREA NITROGEN 17 MG/DL 7-18 N (test code = BUN) GLOMERULAR FILTRATION >=60 max estimate >60 RATE (test code = GFR) estGFR CREATININE (test code = 1.0 MG/DL 0.8-1.3 N CREAT) CALCIUM (test code = CA) 9.1 MG/DL 8.5-10.1 N CBC W/O [id number] 18:30:00 Test Item Value Reference Range Interpretation Comments WHITE BLOOD CELL (test code = 7.9 K/mm3 3.5-11.0 N WBC) RED BLOOD CELL (test code = RBC) 3.63 M/mm3 4.70-6.10 L HEMOGLOBIN (test code = HGB) 11.7 G/DL 12.3-15.9 L HEMATOCRIT (test code = HCT) 36.0 % 35.8-46.7 N MEAN CELL VOLUME (test code = 99.2 Fl 86.3-98.9 H MCV) MEAN CELL HGB (test code = MCH) 32.2 pg 28.9-34.4 N MEAN CELL HGB CONCETRATION (test 32.5 G/DL 32.1-34.5 N code = MCHC) RED CELL DISTRIBUTION WIDTH (test 11.6 SD 11.5-14.5 N code = RDW) PLATELET COUNT (test code = PLT) 364.0 K/mm3 150-450 N MEAN PLATELET VOLUME (test code = 9.10 fL 7.0-9.6 N MPV) BASIC METABOLIC [id number] 18:30:00 Test Item Value Reference Range Interpretation Comments SODIUM (test code = NA) 139 mmol/L 134-147 N POTASSIUM (test code = K) 3.8 mmol/L 3.4-5.0 N CHLORIDE (test code = CL) 106 mmol/L 100-108 N CARBON DIOXIDE (test code = CO2) 27 mmol/L 21-32 N ANION GAP (test code = GAP) 6.0 GAP calc 4.0-15.0 N GLUCOSE (test code = GLU) 84 MG/DL 70-110 N BLOOD UREA NITROGEN (test code = 17 MG/DL 7-18 N BUN) GLOMERULAR FILTRATION RATE (test estGFR >60 code = GFR) CREATININE (test code = CREAT) MG/DL 0.8-1.3 CALCIUM (test code = CA) 9.1 MG/DL 8.5-10.1 N - CT HEAD/BRAIN W/O [id number] 18:29:00 Name: KEVON KINCAID : 1990 Age/S: 29 / M [id number] Unit #: [id number] Loc: [place] [address] Phys: Luis Yao MD Acct: [id number] Dis Date: Status: PRE ER PHONE #: [phone] Exam Date: 08/19/2019 182 FAX #: Reason: Code Str lj EXAMS: CPT: [id number] CT HEAD/BRAIN W/O CONT 34741 Site ID: [id number] CT head TECHNIQUE: CT examination of the brain was performed without contrast on a helical scanner. Scanning conducted from skull base to vertex in the axial plane acquiring 5mm slice thickness. Coronal and sagittal two-dimensional reformatted imaging performed. CT dose lowering technique utilized, with adjustment of MA/kV according to patient size and automated exposure control. CLINICAL HISTORY: Recent head injury, possible seizure FINDINGS: No mass-effect, midline shift, extra-axial fluid collections or intracranial hemorrhage is seen. Cerebral and cerebellar hemispheresare well-formed. There is no evidence for acute cerebral edema. Focal left parietal scalp hematoma is noted. No calvarial fracture demonstrated. Mastoid air cells and parana js sinuses are clear. IMPRESSION: Focal left parietal scalp hematoma, otherwise negative noncontrast head CT at 1829 Reported and signed by: Waqas Faustin M.D. CC: Luis Yao MD Technologist:Radha Carmona, RT(R); Clarissa CTDI: DLP: Trnscb Date/Time: 08/19/2019 (1828) [email or web address] Orig Print D/T: S: 08/19/2019 (183) PAGE 1 Signed Report
--- NOTE | 2020-12-20 17:49 | RAD REPORT ---
EXAM DESCRIPTION: RAD -Hand Left 3 View - 12/20/2020 5:27 pm CLINICAL HISTORY: Left hand pain status post injury FINDINGS: Mildly to moderately displaced fracture involves the fifth metacarpal neck with impaction of fracture fragments. Angulation is present at the fracture site. There appears to be rotation of fifth metacarpal head with respect to the fifth proximal phalanx.
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
[2020-12-20 19:51] VITALS: BP 176/86; TEMP 98; O2SAT 100
== END 2020-12-20 19:18 | disposition home or self-care (01) ==
LOC: ER 15:19
PROC: 2W3DX1Z Immobilization of Left Lower Arm using Splint (ICD-10-PCS; principal; 2020-12-20)
DX: S62.317A Displaced fracture of base of fifth metacarpal bone, left hand, initial encounter for closed fracture (principal); Y93.67 Activity, basketball
CPT/HCPCS: 99283